=== PATIENT | female | born 1950 | race Caucasian/White ===

== ENCOUNTER → 2016-04-05 | Outpatient (CLI) | payer BC ==
--- NOTE | 2016-04-05 14:24 | MA ---
Bilateral Digital Screening Mammography Clinical History: 65-year-old female whose cousin had breast cancer in her 30s. The patient presents today for routine annual mammographic screening. Technique: Digital CC and MLO views of each breast are compared with previous study dated September 16. Additionally, this examination was processed by the [employer] computer-aided detection system. Breast Density: Type B (scattered fibroglandular densities). CAD Evaluation: Reviewed. Findings: There is a moderately dense heterogeneous residual fibroglandular pattern. There is a small focal opacity seen in the posterior left breast below the nipple line with a questionable correlativ e finding in the orthogonal view seen laterally. Spot compression views and possible sonography are s uggested. There are some rare benign-appearing calcifications with no new suspicious clusters. Impression: Questionable small neodensity seen in the posterior inferior and possibly lateral aspect of the left breast. BI-RADS category 0, incomplete. Recommendation: Supplementary spot compression views. If persistent, sonography could be considered, but this will be left to the discretion of the interpreting radiologist. [facility] will send a result letter to the patient.
== END ==
LOC: CIMAGING 12:20
DX: Z12.31 Encounter for screening mammogram for malignant neoplasm of breast (principal); R92.8 Other abnormal and inconclusive findings on diagnostic imaging of breast
CPT/HCPCS: G0202

== ENCOUNTER → 2016-04-12 | Outpatient (CLI) | payer BC ==
--- NOTE | 2016-04-12 18:01 | CT ---
CT Scan of the Chest (Without Contrast) Clinical Indications: Weight loss and tobacco use. Technique: Multidetector helical CT was performed from the superior thoracic inlet to the diaphragm. No intravenous contrast was given. The radiologist manipulated images at the computer workstation. Dose reduction techniques were utilized. Findings: The lungs are clear, and there is no pleural effusion. There is a 2-mm pulmonary nodule s een series #3, #105, laterally. It is in the inferior right upper lobe slightly better visualized on the coronal reconstructions on image #40. The great vessels and pericardium are grossly unremarkabl e. No pneumothorax. There is a nonspecific 8- x 13-mm precarinal mediastinal lymph node. Mild [place] nary artery calcification is present on this nongated study. Impression: Less than 4-mm pulmonary nodule in a current smoker. Recommend follow up in 12 months t o ensure stability based on Fleischner criteria. A Follow-Up Required test result notification was sent via the [employer] service, 3:16:23 PM, 04/12/2016 , [employer] Message ID [id number].
== END ==
LOC: CIMAGING 13:00
PROVIDERS: ATTEND Internal Medicine
DX: R91.1 Solitary pulmonary nodule (principal); R63.4 Abnormal weight loss; Z72.0 Tobacco use
CPT/HCPCS: 71250-PO

== ENCOUNTER → 2016-04-27 | Outpatient (CLI) | payer BC ==
--- NOTE | 2016-04-27 14:05 | MA ---
Diagnostic Digital Left Mammogram History: Possible small nodule outer left breast. Comparison: Screening mammogram April 05, 2016. Technique: A true lateral view and 2 spot mag views of the left breast. Density: C, moderate parenchymal Findings: It is difficult to determine if the nodular density persists or not due to overlying breast parenchyma.. Impression: We will proceed to ultrasound for further evaluation.. BI-RADS 0, additional imaging of the outer left breast with ultrasound
--- NOTE | 2016-04-27 14:55 | US ---
Left Breast Ultrasound History: Possible small nodule outer left breast Comparison diagnostic mammogram earlier Technique: Ultrasound exam with a high frequency linear transducer. Findings: No correlative density is seen on the ultrasound. Impression: No cyst or solid nodule identified to correlate with the equivocal nodule on the diagnost ic mammogram. Recommendation: Six-month follow-up left mammogram to ensure stability/resolution of a possible 3-4mm nodule. BI-RADS 3. Probably benign mammographic finding. Recommendation communicated to the patient at the time of the examination.
== END ==
LOC: CIMAGING 13:08
DX: N63 Unspecified lump in breast (principal)
CPT/HCPCS: 76641-PO; G0206

== ENCOUNTER → 2016-12-10 | Outpatient (CLI) | payer BC | LOC: FIMAGING 08:41 | PROVIDERS: ATTEND Internal Medicine | DX: R92.8 Other abnormal and inconclusive findings on diagnostic imaging of breast (principal) | CPT/HCPCS: G0206 ==

== ENCOUNTER → 2017-04-23 | Outpatient (CLI) | payer BC | LOC: CIMAGING 09:01 | PROVIDERS: ATTEND Internal Medicine | DX: R51 Headache (principal) | CPT/HCPCS: 70450-PO ==

== ENCOUNTER → 2017-05-18 | Outpatient (CLI) | payer BC | LOC: FIMAGING 11:03 | PROVIDERS: ATTEND Internal Medicine | DX: Z12.31 Encounter for screening mammogram for malignant neoplasm of breast (principal) ==